=== PATIENT | male | born 1980 | race Hispanic/Latino ===

== ENCOUNTER → 2022-08-02 | Day surgery (SDC) | payer BC ==
[~2022-08-02] MED LIST: LIPITOR10 MG PO; PROPOFOL IV EMULSION 50 ML IV ONE
[2022-08-02 10:30] VITALS: BP 129/69
== END | disposition home or self-care (01) ==
LOC: OR 07:20
PROVIDERS: ATTEND Internal Medicine Gastroenterology
DX: K22.2 Esophageal obstruction (principal); D12.8 Benign neoplasm of rectum; K29.70 Gastritis, unspecified, without bleeding; K63.89 Other specified diseases of intestine; K21.00 Gastro-esophageal reflux disease with esophagitis, without bleeding; K22.10 Ulcer of esophagus without bleeding; K44.9 Diaphragmatic hernia without obstruction or gangrene; K59.00 Constipation, unspecified; K62.89 Other specified diseases of anus and rectum; K64.8 Other hemorrhoids; Z01.810 Encounter for preprocedural cardiovascular examination; Z79.899 Other long term (current) drug therapy; Z86.19 Personal history of other infectious and parasitic diseases
CPT/HCPCS: 43239; 43450; 45380; 45385; 93005; C9113; J2704; 45378

== ENCOUNTER → 2024-11-19 | Day surgery (SDC) | payer BC ==
[~2024-11-19] MED LIST changes: +ATROPINE SULFATE 1 MG/ML VIAL ONE; +FENTANYL CITRATE/PF 100MCG/2 ML INJ ONE; +GLUCAGON FOR INJ 1 MG VIAL ONE; +MIDAZOLAM HCL 2 MG/2 ML VIAL ONE
[2024-11-19] MEDS: LACTATED RINGER'S 1,000 ML ONE (07:08)
[2024-11-19 09:40] VITALS: TEMP 97
[2024-11-19 10:05] VITALS: BP 117/78; PULSE 76; RESP 18; O2SAT 99
== END | disposition home or self-care (01) ==
LOC: OR 07:02
PROVIDERS: ATTEND Internal Medicine Gastroenterology
DX: K22.2 Esophageal obstruction (principal); K63.5 Polyp of colon; K62.1 Rectal polyp; K29.50 Unspecified chronic gastritis without bleeding; K31.A11 Gastric intestinal metaplasia without dysplasia, involving the antrum; K20.90 Esophagitis, unspecified without bleeding; K21.9 Gastro-esophageal reflux disease without esophagitis; K62.89 Other specified diseases of anus and rectum; K64.8 Other hemorrhoids; K76.89 Other specified diseases of liver; E78.00 Pure hypercholesterolemia, unspecified; Z71.89 Other specified counseling; Z01.810 Encounter for preprocedural cardiovascular examination; Z79.899 Other long term (current) drug therapy; Z68.33 Body mass index [BMI] 33.0-33.9, adult; Z71.3 Dietary counseling and surveillance; Z86.11 Personal history of tuberculosis
CPT/HCPCS: 43239; 43450; 45385; 93005; J0461; J1610; J2250; J2470; J2704; J3010; J7121; 44391